=== PATIENT | female | born 1945 | race Caucasian/White ===

== ENCOUNTER → 2021-10-30 | Outpatient (CLI) | payer MEDICARE | END | disposition home or self-care (01) | LOC: RADUSWWP 12:03 | PROVIDERS: ATTEND Internal Medicine Interventional Cardiology | DX: M79.605 Pain in left leg (principal); M79.604 Pain in right leg | CPT/HCPCS: 93922 ==

== ENCOUNTER → 2023-12-05 | Outpatient (CLI) | payer MEDICARE ==
[2023-12-05 15:03] LABS: Basophils # (A) 0.08 X 10*3/uL (0.00-0.10); Basophils % (A) 1.3 %; Eosinophils # (A) 0.23 X 10*3/uL (0.04-0.35); Eosinophils % (A) 3.8 %; HCT 44.9 % (37.2-46.3); HGB 14.5 g/dL (12.0-15.0); Lymphocytes # (A) 1.24 X 10*3/uL (0.90-5.00); Lymphocytes % (A) 20.4 %; MCH 28.4 pg (27.0-32.0); MCHC 32.3 g/dL (32.0-37.0); MCV 87.9 FL (80.0-97.0); Mean Platelet Volume 12.3 FL (9.5-12.2); Monocytes # (A) 0.71 X 10*3/uL (0.20-1.00); Monocytes % (A) 11.7 %; NRBC Per 100 WBC 0 X 10*3/uL (0.00-0.01); Neutrophils # (A) 3.82 X 10*3/uL (1.80-7.70); Neutrophils % (A) 62.6 %; Platelet Count 239 X 10*3/uL (140-440); RBC 5.11 X 10*6/uL (4.10-5.20); RDW 14.2 % (11.5-14.5); WBC 6.09 X 10*3/uL (4.50-10.00)
[2023-12-05 15:20] LABS: ALT 13 U/L (8-44); AST 15 U/L (13-35); Albumin 4.2 g/dL (3.8-4.9); Alkaline Phosphatase 88 U/L (41-126); BUN/Creat Ratio 18.62 Ratio (12.00-20.00); Blood Urea Nitrogen 14.9 mg/dL (9.0-27.0); Calcium 9.6 mg/dL (8.7-10.3); Carbon Dioxide 25.4 mmol/L (21.6-31.8); Chloride 106 mmol/L (96-109); Glucose 165 mg/dL (70-110); Potassium 3.6 mmol/L (3.5-5.5); Sodium 144 mmol/L (135-145); Total Bilirubin 0.6 mg/dL (0.3-1.2); Total Protein 6.2 g/dL (6.2-8.2)
[2023-12-05 15:48] LABS: Appearance,Urine Cloudy (Clear); Bilirubin,Urine Negative (Negative); Blood,Urine Large (Negative); Color,Urine Yellow (Yellow); Ketones,Urine Negative (Negative); Nitrite,Urine Negative (Negative); PH, Urine 6.5; Specific Gravity,Urine 1.013 (1.001-1.030)
[2023-12-05 16:07] LABS: Bacteria,Urine None Seen (None Seen)
== END | disposition home or self-care (01) ==
LOC: LABPAT 07:56
PROVIDERS: ATTEND Urology
DX: Z01.812 Encounter for preprocedural laboratory examination (principal); N20.0 Calculus of kidney
CPT/HCPCS: 80053; 81001; 85025; 86850; 86900; 86901; 87086

== ENCOUNTER 2023-12-11 07:55 | Day surgery (SDC) | payer MEDICARE, OTHER ==
--- NOTE | 2023-12-10 11:35 | P.GSHP ---
History of Present Illness H&P Date: 12/10/23 78 yo female with a partial staghorn calculous[ greater than 3cm] This isnot infected. SHe was given treatment options. SHe comes for a left pcnl. the risks and complications have been accepted. - Constitutional Constitutional: Denies chills, Denies fever - EENT Eyes: denies blurred vision, denies pain Ears, nose, mouth and throat: Denies headache, Denies sore throat - Cardiovascular Cardiovascular: Denies chest pain, Denies shortness of breath - Respiratory Respiratory: Denies cough, Denies 7 - Gastrointestinal Gastrointestinal: Denies abdominal pain, Denies diarrhea, Denies nausea, Denies vomiting - Genitourinary (Female) Genitourinary: Denies dysuria, Denies hematuria - Genitourinary (Male) Genitourinary: Denies dysuria, Denies hematuria - Musculoskeletal Musculoskeletal: Denies myalgias - Integumentary Integumentary: Denies pruritus, Denies rash - Neurological Neurological: Denies numbness, Denies weakness - Psychiatric Psychiatric: Denies anxiety, Denies depression - Endocrine Endocrine: Denies fatigue, Denies weight change Past Medical History Past Medical History: Diabetes Mellitus, Hypertension Additional Past Medical History / Comment(s): diet controlled now,kidney stones x2, History of Any Multi-Drug Resistant Organisms: None Reported Past Surgical History: Hysterectomy, Joint Replacement, Orthopedic Surgery Additional Past Surgical History / Comment(s): todd knees replaced, rt rotator cuff repair, Past Anesthesia/Blood Transfusion Reactions: No Reported Reaction Smoking Status: Never smoker - Past Family History Daughter(s) Family Medical History: Cancer Additional Family Medical History / Comment(s): throat Medications and Allergies Home Medications Medication Instructions Recorded Confirmed Type B12 9unk) 1 tab PO DAILY 12/10/23 12/10/23 History Co Q 10 1 tab PO DAILY 12/10/23 12/10/23 History D3 1 tab PO DAILY 12/10/23 12/10/23 History Enalapril [Vasotec] 20 mg PO DAILY 12/10/23 12/10/23 History Ezetimibe [Zetia] 10 mg PO DAILY 12/10/23 12/10/23 History amLODIPine 10 mg PO DAILY 12/10/23 12/10/23 History busPIRone HCL 15 mg PO BID 12/10/23 12/10/23 History Allergies Allergy/AdvReac Type Severity Reaction Status Date / Time No Known Allergies Allergy Verified 12/10/23 08:34 Results - Imaging CT scan - abdomen: report reviewed, image reviewed CT scan - pelvis: report reviewed, image reviewed Assessment and Plan Assessment: Impression; left partial staghorn calculous Plan: left pcnl
[~2023-12-11 07:55] MED LIST: fentaNYL (PF) 50 MCG/ML 2 ML AMP IV PRN
--- NOTE | 2023-12-11 08:29 | XR ---
EXAMINATION TYPE: XR KUB DATE OF EXAM: 12/11/2023 Comparison: None Clinical History: 78-year-old female N20.0 Left Renal Stone Findings: Degenerated levoconvex scoliosis lower lumbar spine. Large 3.0 x 2.0 cm calcification left paramedian mid abdomen possibly within the collecting system. Additional 1.1 cm calcification projecting in the lower pole of the left kidney. 1.1 cm calcification projecting at the lower pole of the right kidney . An 8 mm calcification just above the left SI joint is equivocal between a phlebolith and a ureteral stone and should be correlated clinically. Nonobstructive bowel gas pattern. Multiple pelvic phlebol ith. Impression: 1. Bilateral nephrolithiasis measuring up to 1.1 cm on either side. A larger 3.0 cm stone on the left may be within the collecting system. 2. An 8 mm calcification projecting just above the left SI joint is equivocal between a phlebolith an d mid ureteral stone. Correlate with symptoms.
[2023-12-11] MEDS: IV FLUID CONTINUATION 1,000 ML IV ONE (08:42)
[2023-12-11 08:54] LABS: Glucose,Whole Blood 152 mg/dL (70-110)
[2023-12-11] MEDS: ONDANSETRON 4 MG/2 ML VIAL IVP ONE (09:02)
[2023-12-11] MEDS: DEXAMETHASONE SOD PHOSPHATE 4 MG/ML 1 ML VIAL IV ONE (09:02)
[2023-12-11] MEDS: LACTATED RINGERS 1,000 ML IV SCH (09:03)
[2023-12-11] MEDS ORDERED: ROCURONIUM 10 MG/ML (5 ML VIAL) IV ONE (10:02)
[2023-12-11] MEDS ORDERED: GLYCOPYRROLATE 0.2 MG/ML 2 ML VIAL ONE (10:02)
[2023-12-11] MEDS ORDERED: ePHEDrine 50 MG/ML 1 ML VIAL ONE (10:02)
[2023-12-11] MEDS ORDERED: NEOSTIGMINE 1 MG/ML 10 ML VIAL ONE (10:02)
[2023-12-11] MEDS ORDERED: SUCCINYLCHOLINE CHLORIDE 200 MG/10 ML VIAL IV ONE (10:02)
[2023-12-11] MEDS ORDERED: PROPOFOL 10 MG/ML 20 ML VIAL IV ONE (10:02)
[2023-12-11] MEDS ORDERED: fentaNYL (PF) 50 MCG/ML 2 ML AMP ONE (10:02)
[2023-12-11] MEDS ORDERED: LIDOCAINE 1% INJ 10MG/ML (20 ML MDV) ONE (10:02)
[2023-12-11] MEDS: AMPICILLIN 1,000 MG in SODIUM CHLORIDE 0.9% 50 ML IVPB PRN (10:07)
[2023-12-11] MEDS: IOPAMIDOL-370 100ML BTL MISCELLANE ONE (10:56)
[2023-12-11] MEDS: GENTAMICIN 90 MG in SODIUM CHLORIDE 0.9% 100 ML IVPB PRN (11:09)
[2023-12-11] MEDS ORDERED: NALOXONE 0.4 MG/ML 1 ML VIAL IV PRN (12:27)
[2023-12-11] MEDS ORDERED: ONDANSETRON 4 MG/2 ML VIAL IVP PRN (12:28)
[2023-12-11] MEDS ORDERED: MAG HYDROX/AL HYDROX/SIMETH 30 ML CUP PO PRN (12:28)
--- NOTE | 2023-12-11 12:37 | P.OP ---
Date of Procedure: 12/11/23 Preoperative Diagnosis: left renal stones, large later than 3 cm, possible left ureteral Postoperative Diagnosis: same no evidence of left ureteral stone Procedure(s) Performed: cystoscopy, left ureteroscopy, placement of occluding balloon catheter left, p ercutaneous nephrostomy (Dr. Weeks), percutaneous nephrostolithotomy with ultrasound, placement of 10 J nephrostomy Anesthesia: NOBLE Surgeon: Alexandro Weeks Estimated Blood Loss (ml): 50 Pathology: other Condition: stable (stone) Disposition: PACU Indications for Procedure: the patient is a 78. She has a 3 cm left renal pelvic stone as well as satellite stones in the left lower pole calyx. There is hydronephrosis. She c omes for percutaneous nephrostolithotomy. KUB this morning shows a calcification in the region of the mid ureter I will address intraoperatively. Description of Procedure: patient brought to the operating suite. Given a general anesthetic on the operating table. She's placed lithotomy position with a sterile prep and drape. Cystoscopy Foroblique lens and 21-South Korean sheath identifies a normal urethra. The bladder mucosa is unremarkable. The ureteral orifices are both normal. I first passed an occluding balloon catheter up the left ureter and the calcification that appeared to be in the ureter remains in the region of the ureter. The stent overlies the calcification seen. Due to its location I will do ureteroscopy to remove the stone. The semirigid ureteroscope was then passed in the ureter up to the region where the calcification has an becomes evidence that the calcification is not in the lumen its outside. Passing ureteroscope proximal distal this region twice and see no evidence of stone. I then reintroduced the 5-South Korean occluding balloon catheter up into the UPJ. The balloon is insufflated and is secured to a 16-South Korean Ferreira The patient is placed in a prone position with care to airways and extremities. I then attempted to inject air through the ureteral catheter previously placed but there is a function of the catheter and I'm unable to pass air through the catheter to outline the collecting system. I attempted several times to pass a wire, 025 and this fails. I thus removed the ureteral catheter and performed flexible cystoscopy in the prone position and identify the ureteral orifice and passed an 035 wire up into the kidney. Over this wire a new occluding balloon catheter is passed up. I removed the wire inject the collecting system with air and insufflate the balloon I then performed percutaneous access to the left upper pole calyx and this will be dictated separately by myself. Once access was created to the upper pole calyx I dilate the tract to 30-South Korean and introduced a working sheath into the collecting system. Clot is removed and the very large stone was identified in the renal pelvis. Using ultrasound I slowly break the stone up and suction out the smaller pieces or grasp the larger pieces with grasping forcep. There are several smaller stones that have rolled into the renal pelvis and in remove these were calyceal stones. I then pass a flexible nephroscope throughout the collecting system and other than debris. No significant stones. I passed the nephroscope down the proximal ureter there no remaining stones I then introduced a 10-[place] Korean J nephrostomy tube over the working wire that coils in the renal pelvis. It is secured the skin with 2-0 silk the patient is awakened and returned recovery in good condition. She tolerated the procedure well. Blood loss was approximately 50 mL.
--- NOTE | 2023-12-11 12:40 | P.PCN ---
Date of Procedure: 12/11/23 Preoperative Diagnosis: left renal stone large Postoperative Diagnosis: same Procedure(s) Performed: left percutaneous nephrostomy access Anesthesia: NOBLE Surgeon: Alexandro Weeks Indications for Procedure: the patient is in the operating suite today for a percutaneous nephrostolithotomy left for a very large left renal stone. I'll perform radiographic percutaneous access Description of Procedure: the patient is in operating suite. She has a previously placed ureteral catheter in the collecting system. She is in a prone position to care to airways and extremities. Air is injected through the collecting system and appears as if a left lower pole calyx can be intubated. I attempt with the Chiba needle 2 or 3 times to intubate this left lower pole calyx but failed I then identify a large dilated left upper pole calyx just above the 11th rib. Based on computed tomography scan it is well below the lung. Unfortunately able to intubate it with the Chiba needle. I then pass a cope mandrel wire down the ureter. I removed the Chiba needle and over the wire pass a 6-Kyrgyz exchange catheter over the wire into the left proximal ureter. I removed the Chiba and needle and then pass an 035 Super Stiff Amplatz wire down the ureter. I then removed the 6-Kyrgyz dilating catheter and pass an 8-10-Kyrgyz dilating catheter. The inner catheters removed and I then pass a safety wire through the 10-Kyrgyz catheter down the ureter. The 10-Kyrgyz catheters removed and then I used the nephrostomy tract dilating balloon to dilate to 30-Kyrgyz. The working sheath is introduced into the collecting system.
[2023-12-11 12:44] LABS: Glucose,Whole Blood 151 mg/dL (70-110)
[2023-12-11] MEDS: HYDROmorphone 0.5 MG/0.5 ML SYRINGE IVP PRN (13:46)
[2023-12-11] MEDS: DEXTROSE 5%-0.45% NACL 1,000 ML IV SCH (15:14)
[2023-12-11] MEDS: HYDROmorphone PCA 10 MG/50 ML BAG IV PRN (16:43)
[2023-12-11] MEDS: busPIRone HCl 5 MG TAB PO SCH (21:15)
--- NOTE | 2023-12-11 21:27 | FL ---
EXAMINATION TYPE: FL Perc Nephrostomy New Access DATE OF EXAM: 12/11/2023 COMPARISON: NONE HISTORY: 78-year-old female cystoscopy lithotripsy left renal stone. TECHNIQUE: Fluoroscopy. FINDINGS and impression: Fluoroscopic guidance was provided during procedure Perc. Nephro for left s apollo kidney stone 8.20 min fluoro time 62.[address] Weeks 13 images submitted.
[2023-12-12] MEDS: ACETAMINOPHEN TAB 325 MG TAB PO PRN (08:03)
[2023-12-12] MEDS: amLODIPine 10 MG TAB PO SCH (08:14)
[2023-12-12] MEDS: EZETIMIBE 10 MG TAB PO SCH (08:15)
[2023-12-12] MEDS: lisinopriL 20 MG TAB PO SCH (08:16)
--- NOTE | 2023-12-12 18:30 | P.PN ---
Subjective Progress Note Date: 12/12/23 Principal diagnosis: POD #1, s/p left PCNL The patient reports left flank pain, which she states is controlled with the MARK UP DESIGNER. Objective - Vital Signs Vital signs: Vital Signs Temp 97.9 F 12/12/23 08:00 Pulse 67 12/12/23 08:00 Resp 18 12/12/23 08:00 BP 148/68 12/12/23 08:00 Pulse Ox 98 12/12/23 08:00 FiO2 Intake & Output 12/11/23 12/12/23 12/12/23 18:59 06:59 18:59 Intake Total 1052.25 Output Total 200 825 50 Balance 852.25 -825 -50 Weight 82.7 kg Intake: IV 1052.25 Output: Drainage 50 200 50 Left flank 50 200 50 Urine 100 625 Estimated Blood Loss 50 Other: Voiding Method Indwelling Catheter - Constitutional General appearance: Present: average body habitus, cooperative, no acute distress - Gastrointestinal Gastrointestinal Comment(s): Soft, non-tender, non-distended. Left nephrostomy tube is intact, draining blood-tinged urine. The Ferreira catheter is draining urine which is very faintly blood-tinged. - Psychiatric Psychiatric: Present: A&O x's 3 - Labs Labs: Abnormal Lab Results - Last 24 Hours (Table) 12/11/23 Range/Units 12:43 POC Glucose (mg/dL) 151 H (70-110) mg/dL Assessment and Plan (1) Calculus of kidney Current Visit: Yes Status: Acute Code(s): N20.0 - CALCULUS OF KIDNEY SNOMED Code(s): 61989844 Plan: Ferreira catheter will be removed. The nephrostomy tube will be kept to gravity drainage. Discharge home tomorrow is anticipated.
[2023-12-13] MEDS ORDERED: HYDROcodone/APAP 5-325MG 1 EACH TAB PO PRN (08:42)
[2023-12-13] MEDS ORDERED: HYDROmorphone 0.5 MG/0.5 ML SYRINGE IVP PRN (08:43)
[2023-12-13] MEDS: HYDROcodone/APAP 5-325MG 1 EACH TAB PO PRN (09:30)
--- NOTE | 2023-12-13 09:36 | XR ---
EXAMINATION TYPE: XR chest 2V DATE OF EXAM: 12/13/2023 9:16 AM CLINICAL INDICATION:Female, 78 years old with history of Chest Pain; COMPARISON: Chest radiographs from 12/13/2023 10/31/2011 TECHNIQUE: XR chest 2V Frontal view of the chest. FINDINGS: Lungs/Pleura: There is no evidence of pleural effusion, focal consolidation, or pneumothorax. Pulmonary vascularity: Unremarkable. Heart/mediastinum: Cardiomediastinal silhouette is unremarkable. Musculoskeletal: No acute osseous pathology. Other findings: None IMPRESSION: Low lung volumes with basilar atelectasis possible small bilateral pleural effusions.
[2023-12-13 09:58] VITALS: BP 135/77; PULSE 72; RESP 20; TEMP 98.9
--- NOTE | 2023-12-15 11:14 | P.DS ---
Providers Expected date of discharge: 12/13/23 Attending physician: Alexandro Weeks Primary care physician: Maycol Acuña - Discharge Diagnosis(es) (1) Calculus of kidney Status: Acute Hospital Course: On the day of admission, the patient underwent an uncomplicated left percutaneous nephrolithotomy (PCNL). The perioperative course was unremarkable. The patient did experience significant postoperative pain, largely positional, which necessitated the use of a BODY BUMPER for 48 hours. The Ferreira catheter was removed on the first postoperative day, and the patient voided without difficulty. At the time of discharge, the nephrostomy tube was draining faintly blood-tinged urine. The dressing was dry and intact. The patient did report left shoulder pain, and thus a chest x-ray was obtained which revealed atelec tasis but was otherwise unremarkable. She was discharged home with the nephrostomy tube and will follow-up with Dr. Weeks on December 16, 2023. The nephrostomy tube will be removed at that time. Procedures: Left PCNL on December 10. Patient Condition at Discharge: Fair Plan - Discharge Summary Discharge Rx Participant: No New Discharge Prescriptions: New HYDROcodone/APAP 5-325MG [[place] 5-325] 1 - 2 tab PO Q6HR PRN #12 tab PRN Reason: Pain No Action busPIRone HCL 15 mg PO BID amLODIPine 10 mg PO DAILY Ezetimibe [Zetia] 10 mg PO DAILY Enalapril [Vasotec] 20 mg PO DAILY B12 9unk) 1 tab PO DAILY D3 1 tab PO DAILY Co Q 10 1 tab PO DAILY Discharge Medication List B12 9unk) 1 tab PO DAILY 12/10/23 [History] Co Q 10 1 tab PO DAILY 12/10/23 [History] D3 1 tab PO DAILY 12/10/23 [History] Enalapril [Vasotec] 20 mg PO DAILY 12/10/23 [History] Ezetimibe [Zetia] 10 mg PO DAILY 12/10/23 [History] amLODIPine 10 mg PO DAILY 12/10/23 [History] busPIRone HCL 15 mg PO BID 12/10/23 [History] HYDROcodone/APAP 5-325MG [[place] 5-325] 1 - 2 tab PO Q6HR PRN #12 tab 12/13/23 [Rx] Follow up Appointment(s)/Referral(s): Alexandro Weeks MD [STAFF PHYSICIAN] - 12/16/23 Patient Instructions/Handouts: Nephrostomy Tube Care (DC) Activity/Diet/Wound Care/Special Instructions: D/C Home with nephrostomy tube. No strenuous activity. Drink plenty of fluids. Discharge Disposition: HOME SELF-CARE
== END 2023-12-13 14:31 | disposition home or self-care (01) ==
LOC: OR 07:55 → 4SSUR 12:35 → 4FBP 13:54 → OR 12-13 14:31
PROVIDERS: ATTEND Urology
DX: N13.2 Hydronephrosis with renal and ureteral calculous obstruction (principal); G89.18 Other acute postprocedural pain; E11.9 Type 2 diabetes mellitus without complications; I10 Essential (primary) hypertension; I87.8 Other specified disorders of veins; Z79.899 Other long term (current) drug therapy; Z90.710 Acquired absence of both cervix and uterus
CPT/HCPCS: 50080; 82365; 50432; 71046; 74018; 52332; C1769 ×4; C1758; C1894; C1729; J0330; J1100; J2710; J2405; J2001; J3010; J1580; J0290; J2704; J1170 ×2; Q9967; J1596

== ENCOUNTER → 2024-01-31 | Outpatient (CLI) | payer MEDICARE, OTHER ==
--- NOTE | 2024-01-31 11:38 | CT ---
EXAMINATION TYPE: CT abdomen pelvis wo con DATE OF EXAM: 01/31/2024 HISTORY: Right flank pain x [address] DLP: 1089 mGycm. Automated Exposure Control for Dose Reduction was Utilized. TECHNIQUE: CT scan of the abdomen and pelvis is performed without oral or IV contrast. COMPARISON: None FINDINGS: Within the limitations of a non-contrast study, the following observations are made. The lungs are clear. Gallbladder is normal and there is no gallstone, wall thickening, pericholecystic fluid or distention . There is no biliary ductal dilatation. There is no organomegaly of the liver, pancreas, spleen or adrenal glands. There is a 3 cm cyst withi n the medial segment of left lobe of the liver. There is a 13 mm calcification in the right renal pelvis in the region of the right UPJ. 3 additional renal calcifications are seen within the right kidney one measuring 9 mm and another measuring appro ximately 11 mm. A fourth calcification is 2 to 3 mm. There are no left renal calcifications. The caliber of the abdominal aorta is normal and there is no retroperitoneal adenopathy or hemorrhage . The bowel loops are normal in caliber is no evidence of obstruction. No inflammatory changes are iden tified in the mesentery and there is no free intraperitoneal air or fluid. There is no pelvic mass, free fluid, abscess or adenopathy. There is mild diverticulosis of the colon without CT evidence of diverticulitis. The osseous structures and soft tissues are unremarkable. IMPRESSION: Multiple right renal calcifications including a 13 mm calcification in the right renal pelvis near th e right UPJ. See above
== END | disposition home or self-care (01) ==
LOC: RADCTMAIN 10:54
PROVIDERS: ATTEND Urology
DX: N20.0 Calculus of kidney (principal)
CPT/HCPCS: 74176

== ENCOUNTER → 2024-02-12 | Outpatient (CLI) | payer MEDICARE, OTHER ==
[2024-02-12 15:33] LABS: BUN/Creat Ratio 16.33 Ratio (12.00-20.00); Blood Urea Nitrogen 14.7 mg/dL (9.0-27.0); Carbon Dioxide 23.9 mmol/L (21.6-31.8); Chloride 104 mmol/L (96-109); Glucose 106 mg/dL (70-110); Potassium 4.4 mmol/L (3.5-5.5); Sodium 142 mmol/L (135-145)
[2024-02-12 15:42] LABS: Appearance,Urine Clear (Clear); Bilirubin,Urine Negative (Negative); Blood,Urine Large (Negative); Color,Urine Yellow (Yellow); Ketones,Urine Negative (Negative); Nitrite,Urine Negative (Negative); PH, Urine 5.5; Specific Gravity,Urine 1.014 (1.001-1.030); Urobilinogen,Urine 0.2 E.U./DL
[2024-02-12 15:46] LABS: Bacteria,Urine 1+ (None Seen)
[2024-02-12 15:57] LABS: Basophils # (A) 0.08 X 10*3/uL (0.00-0.10); Basophils % (A) 1.2 %; Eosinophils # (A) 0.13 X 10*3/uL (0.04-0.35); Eosinophils % (A) 1.9 %; HCT 44.9 % (37.2-46.3); HGB 14.5 g/dL (12.0-15.0); Lymphocytes # (A) 1.58 X 10*3/uL (0.90-5.00); Lymphocytes % (A) 23.6 %; MCH 28.2 pg (27.0-32.0); MCHC 32.3 g/dL (32.0-37.0); MCV 87.2 FL (80.0-97.0); Mean Platelet Volume 12.4 FL (9.5-12.2); Monocytes # (A) 0.81 X 10*3/uL (0.20-1.00); Monocytes % (A) 12.1 %; NRBC Per 100 WBC 0 X 10*3/uL (0.00-0.01); Neutrophils # (A) 4.08 X 10*3/uL (1.80-7.70); Neutrophils % (A) 60.9 %; Platelet Count 211 X 10*3/uL (140-440); RBC 5.15 X 10*6/uL (4.10-5.20); RDW 13.9 % (11.5-14.5)
== END | disposition home or self-care (01) ==
LOC: LABWHC1 12:31
PROVIDERS: ATTEND Urology
DX: Z01.812 Encounter for preprocedural laboratory examination (principal); N20.0 Calculus of kidney
CPT/HCPCS: 36415; 80048; 81001; 85025; 87086

== ENCOUNTER 2024-02-19 07:02 | Day surgery (SDC) | payer MEDICARE ==
--- NOTE | 2024-02-18 12:04 | P.GSHP ---
History of Present Illness H&P Date: 02/18/24 78 yo female with painful right renal stones. We discussed treatment options including pcnl. ureteroscopy or eswl. We decided on ureteroscopy with a stent .. She comes for this procedure. - Constitutional Constitutional: Denies chills, Denies fever - EENT Eyes: denies blurred vision, denies pain Ears, nose, mouth and throat: Denies headache, Denies sore throat - Cardiovascular Cardiovascular: Denies chest pain, Denies shortness of breath - Respiratory Respiratory: Denies cough, Denies 7 - Gastrointestinal Gastrointestinal: Denies abdominal pain, Denies diarrhea, Denies nausea, Denies vomiting - Genitourinary (Female) Genitourinary: Denies dysuria, Denies hematuria - Genitourinary (Male) Genitourinary: Denies dysuria, Denies hematuria - Musculoskeletal Musculoskeletal: Denies myalgias - Integumentary Integumentary: Denies pruritus, Denies rash - Neurological Neurological: Denies numbness, Denies weakness - Psychiatric Psychiatric: Denies anxiety, Denies depression - Endocrine Endocrine: Denies fatigue, Denies weight change Past Medical History Past Medical History: Diabetes Mellitus, Hypertension, Renal Disease Additional Past Medical History / Comment(s): diet controlled now,kidney stones x2, History of Any Multi-Drug Resistant Organisms: None Reported Past Surgical History: Hysterectomy, Joint Replacement, Orthopedic Surgery Additional Past Surgical History / Comment(s): todd knees replaced, rt rotator cuff repair, nephrostolithotomy,hemorrhoid, todd cataracts Past Anesthesia/Blood Transfusion Reactions: No Reported Reaction Smoking Status: Never smoker - Past Family History Daughter(s) Family Medical History: Cancer Additional Family Medical History / Comment(s): throat Medications and Allergies Home Medications Medication Instructions Recorded Confirmed Type B12 9unk) 1 tab PO DAILY 12/10/23 02/13/24 History Co Q 10 1 tab PO DAILY 12/10/23 02/13/24 History D3 1 tab PO DAILY 12/10/23 02/13/24 History Enalapril [Vasotec] 20 mg PO DAILY 12/10/23 02/13/24 History Ezetimibe [Zetia] 10 mg PO BID 12/10/23 02/13/24 History amLODIPine 10 mg PO DAILY 12/10/23 02/13/24 History busPIRone HCL 15 mg PO BID 12/10/23 02/13/24 History Glipizide(Unk) 1 tab PO DAILY 02/13/24 02/13/24 History HYDROcodone/APAP 5-325MG [[place] 1 tab PO Q6HR PRN 02/13/24 02/13/24 History 5-325] Sertraline (Unk) 1 tab PO BID 02/13/24 02/13/24 History Allergies Allergy/AdvReac Type Severity Reaction Status Date / Time No Known Allergies Allergy Verified 12/11/23 08:42 Surgical - Exam - General well developed, well nourished, no distress - Eyes normal ocular movement, no icteric - ENT no hearing loss, no congestion - Neck no masses, trachea midline - Respiratory normal respiratory effort, clear to auscultation - Abdomen Abdomen: soft, non tender, no guarding, no rigid, no rebound - Integumentary no rash, no abnormal pigmentation - Neurologic no disoriented, no combative - Psychiatric oriented to time, oriented to person, oriented to place, speech is normal, memory intact Results - Imaging Abdominal x-ray: report reviewed, image reviewed CT scan - abdomen: report reviewed, image reviewed CT scan - pelvis: report reviewed, image reviewed Assessment and Plan Assessment: Impression: right renal stones Plan: right ureteroscopy with laser lithotrispy and stent placement.
[2024-02-19] MEDS: IV FLUID CONTINUATION 1,000 ML IV ONE ×2 (07:30→11:20)
--- NOTE | 2024-02-19 07:31 | XR ---
EXAMINATION TYPE: XR KUB DATE OF EXAM: 02/19/2024 COMPARISON: 01/20/2020 HISTORY: Preop TECHNIQUE: One view abdominal series FINDINGS: The left probable ureteral calcification measuring 9 mm is unchanged in position. There is a right re nal pelvic calcification now measuring 10.3 cm. A larger staghorn calculus is present removed. There are additional multiple calculi measuring 5 mm or less overlying the mid to lower pole right kidney. These are stable. Pelvic calcifications are stable. Scoliosis with degenerative changes in the spine. Bilateral hip arthropathy. Bowel gas pattern nonspe cific correlate for constipation. Vascular calcifications noted. IMPRESSION: 1. A large staghorn calculus on prior exam is been removed. Additional calculi in the right kidney as discussed above are stable. 2. Stable left paraspinal calcification possibly in the course of the left ureter. [facility], , 02/19/2024 7:29 AM
[2024-02-19 07:58] LABS: Glucose,Whole Blood 103 mg/dL (70-110)
[2024-02-19] MEDS: ONDANSETRON 4 MG/2 ML VIAL IVP ONE (08:01)
[2024-02-19] MEDS: DEXAMETHASONE SOD PHOSPHATE 4 MG/ML 1 ML VIAL IV ONE (08:01)
[2024-02-19] MEDS: LACTATED RINGERS 1,000 ML IV SCH (08:01)
[2024-02-19] MEDS ORDERED: fentaNYL (PF) 50 MCG/ML 2 ML AMP ONE (10:00)
[2024-02-19] MEDS ORDERED: ACETAMINOPHEN IV (For NPO) 1,000 MG/100 ML VIAL ONE (10:00)
[2024-02-19] MEDS ORDERED: PROPOFOL 10 MG/ML 20 ML VIAL IV ONE (10:00)
[2024-02-19] MEDS ORDERED: LIDOCAINE 1% INJ 10MG/ML (20 ML MDV) ONE (10:00)
[2024-02-19] MEDS ORDERED: ePHEDrine 50 MG/ML 1 ML VIAL ONE (10:00)
[2024-02-19] MEDS: LACTATED RINGERS 1,000 ML IV ONE (10:54)
[2024-02-19 11:25] VITALS: TEMP 96.8
--- NOTE | 2024-02-19 11:26 | P.OP ---
Date of Procedure: 02/19/24 Preoperative Diagnosis: right renal stones Postoperative Diagnosis: same Procedure(s) Performed: cystoscopy, right ureteroscopy with laser lithotripsy and stone basketing, placement of 6 x 22 double-J catheter Anesthesia: NOBLE Surgeon: Alexandro Weeks Estimated Blood Loss (ml): 10 Pathology: other Condition: stable (stone) Disposition: PACU Indications for Procedure: the patient is a 78. She has a 1 cm UPJ stone and 2 other stones in her kidney one in the right lower pole and one in the middle pole. She comes for ureteroscopy and laser lithotripsy stone basketing Description of Procedure: patient brought to the operating suite. Given a general anesthetic. Placed lithotomy position with a sterile prep and drape. Cystoscopy Foroblique lens and 21-Icelandic sheath identifies a normal urethra. The ureteral orifices are normal. The bladder mucosa is unremarkable And 035 wire is then passed up the right ureter by the UPJ stone into the collecting system. Over the wires passed a 56-10-Wngmbz reentry sheath. The inner sheath is removed. Through the outer sheath I then pass a flexible ureteroscope up to the UPJ stone which falls back into the renal pelvis. With the 275 laser probe and 12 W of energy the stone was broken into tiny pieces such that they can flushed out of the ureter. I then go into the middle pole break up the stone with the same laser probe energy and then eventually going to the lower pole break up the stone. Then using stone basket, 1.9-Icelandic to basket the larger fragments up. After that is done I then pass an 035 wire through the working sheath into the right renal pelvis. I then removed the working sheath and passed a 6 x 22 double-J catheter that coils in the right renal pelvis and in the bladder. The bladder is inspected and position of the stent is good. There is no significant abnormality. The bladder is drained and the patient is awakened and returned recovery in good condition. Blood loss is minimal. She tolerated procedure well. Stone fragments will be sent to pathology. The patient is awakened and returned recovery room in good condition. She'll be discharged home upon recovery.
[2024-02-19] MEDS: HYDROmorphone 0.5 MG/0.5 ML SYRINGE IVP PRN (12:08)
[2024-02-19 12:50] VITALS: RESP 16
[2024-02-19] MEDS: KETOROLAC 15 MG/ML 1 ML VIAL IVP STA (13:03)
[2024-02-19 13:42] VITALS: BP 120/67; PULSE 69
--- NOTE | 2024-02-25 18:22 | FL ---
EXAMINATION TYPE: FL guidance operating room COMPARISON: Pre Operative Images if available both CT/MRI or plain film CLINICAL INDICATION: Female, 78 years old with history of Cysto for rt kidney stone; TECHNIQUE: FL guidance operating room, multiple fluoroscopic images provided for procedure. Total fluoroscopy time: 41 seconds Total submitted images to PACS: 2 DAP: 15.493 mGym2 Gycm2 uGym2 cGycm2 FINDINGS: Intraoperative fluoroscopic images resulting in pigtail catheter reticulation of the appropriate posi tion near the renal pelvis on the right. No immediate intraoperative completion identified. IMPRESSION: 1. No evidence for intraoperative complication. 2. Please see the operative/procedural note for further details. [facility], , 02/25/2024 6:19 PM
== END 2024-02-19 14:11 | disposition home or self-care (01) ==
LOC: OR 07:02
PROVIDERS: ATTEND Urology
DX: N20.0 Calculus of kidney
CPT/HCPCS: 74018; 82365

== ENCOUNTER → 2024-02-26 | Outpatient (CLI) | payer MEDICARE, OTHER ==
--- NOTE | 2024-02-26 16:59 | XR ---
EXAMINATION TYPE: XR KUB DATE OF EXAM: 02/26/2024 4:31 PM CLINICAL INDICATION: Female, 78 years old with history of N20.0 CALCULUS OF KIDNEY; [facility] COMPARISON: 02/19/2024. TECHNIQUE: One radiographic view of the abdomen was obtained. FINDINGS: The bowel gas pattern is nonspecific without dilated loops of small or large bowel. . Fecal material and gas are demonstrated throughout the colon and rectum. There is no evidence for organomegaly or pneumoperitoneum. The osseous structures are intact. Right ureteral stent with superior and inferior pigtails in appropriate position. IMPRESSION: Right ureteral stent with tip in appropriate position. Right renal calculi not definitively visualize d. Nonspecific bowel gas pattern without radiographic evidence for acute process. [facility], , 02/26/2024 4:57 PM
== END | disposition home or self-care (01) ==
LOC: RADXRMAIN 16:08
PROVIDERS: ATTEND Urology
DX: N20.0 Calculus of kidney (principal)
CPT/HCPCS: 74018